=== PATIENT | male | born 1990 | race Caucasian/White ===

== ENCOUNTER 2020-06-25 20:02 | Inpatient (IN) | payer MEDICAID ==
[~2020-06-25] VITALS: Ht 180.3 cm; Wt 147.7 kg
[~2020-06-25 20:02] MED LIST: CYCL-1 PO; IBUP-1986 PO
[2020-06-25 20:49] LABS: BASOPHILS % (AUTO) 0.4 % (0-1); EOSINOPHILS % (AUTO) 0.2 % (0-6); HEMOGLOBIN 12.7 g/dl (14.0-17.9); LYMPHOCYTES % (AUTO) 13.5 % (21-51); MEAN CORPUSCULAR HEMOGLOBIN 28.8 PG (27.0-31.0); MEAN CORPUSCULAR HGB CONC 32.4 g/dL (33.0-36.5); MEAN CORPUSCULAR VOLUME 88.6 FL (78-98); MEAN PLATELET VOLUME 6.4 FL (7.4-10.4); MONOCYTES # (AUTO) 0.9 X10'3 (0-0.9); MONOCYTES % (AUTO) 11.9 % (2-12); NEUTROPHILS # (AUTO) 5.6 X10'3 (1.8-7.7); PLATELET COUNT 421 X10'3 (140-440); RED CELL DISTRIBUTION WIDTH 15.3 % (11.5-14.5); WHITE BLOOD COUNT 7.6 X10'3 (4.5-11.0)
[2020-06-25 20:50] LABS: CLARITY,URINE CLEAR (Clear); COLOR,URINE YELLOW (Yellow); GLUCOSE, URINE NEGATIVE (Neg); KETONES,URINE NEGATIVE (Neg); LEUKOCYTE ESTERASE ,URINE NEGATIVE (Neg); NITRITES, URINE NEGATIVE (Neg); OCCULT BLOOD,URINE NEGATIVE (Neg); PH,URINE 5.5 (4.8-8.0); PROTEIN,URINE 30 mg/dl (Neg)
[2020-06-25 20:53] LABS: UA COLLECTION TYPE NON-SPECIFIED
[2020-06-25 21:05] LABS: ALANINE AMINOTRANSFERASE 176 U/L (12-78); ALBUMIN 1.5 G/DL (3.4-5.0); ALBUMIN/GLOBULIN RATIO 0.3 (1.1-1.5); ALKALINE PHOSPHATASE 79 IU/L (46-116); ANION GAP 4 (8-16); ASPARTATE AMINO TRANSFERASE 422 U/L (10-37); BILIRUBIN,TOTAL 0.2 MG/DL (0.1-1.0); BLOOD UREA NITROGEN 10 MG/DL (7-18); BUN/CREATININE RATIO 13.9 (5.4-32.0); CALCIUM 7.2 MG/DL (8.5-10.1); CHLORIDE 102 MMOL/L (99-107); CREATININE 0.72 MG/DL (0.60-1.10); GLUCOSE 83 MG/DL (70-104); POTASSIUM 3.8 MMOL/L (3.5-5.1); SODIUM 133 MMOL/L (135-145); TOTAL CARBON DIOXIDE 26.7 MMOL/L (24-32); TOTAL PROTEIN 7.1 G/DL (6.4-8.2); eGFR > 90 ML/MIN
[2020-06-25 21:23] LABS: RBC,URINE NONE SEEN /HPF (0-2); SQUAMOUS EPITHELIAL CELL,UR FEW /LPF (FEW)
[2020-06-25 21:24] LABS: BACTERIA,URINE 2+ /HPF (Neg); MUCUS STRANDS MODERATE /LPF (Neg)
[2020-06-25] MEDS ORDERED: normal saline 1000ml 1,000 ML IV ONE ×2 (22:40)
[2020-06-25] MEDS ORDERED: folic acid 1mg/0.2ml inj IV ONE (22:50)
[2020-06-25] MEDS ORDERED: thiamine 100mg/ml 2ml inj. IV ONE (22:50)
[2020-06-25] MEDS ORDERED: LORazepam 2 mg/ml vial IV ONE ×2 (22:50→23:25)
[2020-06-26] MEDS ORDERED: normal saline 1000ml 1,000 ML IV ONE (00:25)
[2020-06-26 01:24] LABS: URINE AMPHETAMINE SCREEN NEGATIVE (Neg); URINE BARBITUATE SCREEN NEGATIVE (Neg); URINE BENZODIAZEPINES SCREEN NEGATIVE (Neg); URINE CANNABINOID SCREEN POSITIVE (Neg); URINE COCAINE SCREEN NEGATIVE (Neg); URINE METHADONE SCREEN NEGATIVE (Neg); URINE OPIATE SCREEN NEGATIVE (Neg); URINE PHENCYCLIDINE SCREEN NEGATIVE (Neg)
--- NOTE | 2020-06-26 02:50 | NUR ---
discussed pt's condition with provider. pt's bp taken manually to compare with monitor readings. patient sat up on side of bed for reading. pt has not urinated since rehyrdation with three liters of ns. aware and states she would like to keep patient.
[2020-06-26 03:08] LABS: LARGE PLATELETS FEW; PLATELET ESTIMATE NORMAL; TOTAL CELLS COUNTED 100; TOXIC GRANULATION 1+; TOXIC VACUOLATION FEW
[2020-06-26 03:10] LABS: POLYCHROMASIA FEW
--- NOTE | 2020-06-26 03:28 | NUR ---
PT URINATED. URINE IS TEA COLORED. OUTPUT ABOUT 300 MLS. AWARE. MD VERBALLY ORDERED 1 LITER NS. PT REFUSED ADDITIONAL LITER DUE TO THE FACT THAT HIS PHONE IS DYING AND HIS RIDE IS LEAVING. PT EDUCATED THAT WE COULD GET HIM A CAB HOME. MD AWARE OF PT'S REFUSAL OF TREATMENT.
[2020-06-26 03:48] LABS: CREATINE KINASE 3678 U/L (39-308)
[2020-06-26] MEDS ORDERED: CefTRIAXone/D5W-Rocephin 1gm 50 ML IV ONE (03:50)
[2020-06-26] MEDS ORDERED: CIPR250S2 PO (05:03)
--- NOTE | 2020-06-26 05:44 | NUR ---
WENT TO PREPARE PATIENT FOR DISCHARGE, AND PATIENT STATED THAT HE WAS WILLING TO STAY AND BE ADMITTED FOR TREATMENT.
[2020-06-26] MEDS ORDERED: azithromycin 250mg tablet PO ONE (08:05)
[2020-06-26] MEDS ORDERED: magnesium hydroxide 30ml (MOM) UD suspension PO PRN (10:25)
[2020-06-26] MEDS ORDERED: magnesium 4gm in 100ml NS 100 ML IV PRN (10:25)
[2020-06-26] MEDS ORDERED: magnesium 2GM in 50ml NS 50 ML IV PRN (10:25)
[2020-06-26] MEDS ORDERED: haloperidol lactate 5mg/ml inj IM PRN (10:25)
[2020-06-26] MEDS ORDERED: mag hydrox/Alum hydrox/simeth 30ml oral suspension PO PRN (10:25)
[2020-06-26] MEDS ORDERED: ondansetron/PF 4mg/2ml inj IV PRN (10:25)
[2020-06-26] MEDS ORDERED: bisacodyl 10mg suppository rectal RC PRN (10:25)
[2020-06-26] MEDS ORDERED: HYDROcodone/acetaminophen 5mg/325mg tablet PO PRN (10:25)
[2020-06-26] MEDS ORDERED: metoclopramide 5 mg/ml inj IV PRN (10:25)
[2020-06-26] MEDS ORDERED: diphenhydrAMINE 25mg capsule PO PRN (10:25)
[2020-06-26] MEDS ORDERED: diphenhydrAMINE 50 mg/ml inj IV PRN (10:25)
[2020-06-26] MEDS ORDERED: dextrose 50%-water 50ml dispensing syringe IV PRN (10:25)
[2020-06-26] MEDS ORDERED: acetaminophen 325mg tablet PO PRN ×2 (10:25)
[2020-06-26] MEDS ORDERED: thiamine 100mg/ml 2ml inj. IV ONE (10:25)
[2020-06-26] MEDS ORDERED: HYDROcodone/acetaminophen 10/325mg tab PO PRN (10:25)
[2020-06-26] MEDS ORDERED: potassium CL 10mEq/100ml bag 100 ML IV PRN ×2 (10:25)
[2020-06-26] MEDS ORDERED: potassium Cl 20 mEq SR tablet PO PRN ×2 (10:25)
[2020-06-26] MEDS ORDERED: LORazepam 2 mg/ml vial IV PRN (10:25)
[2020-06-26] MEDS ORDERED: magnesium Cl slow-release 64mg tablet PO PRN (10:25)
[2020-06-26] MEDS ORDERED: haloperidol 5mg tablet PO PRN (10:25)
[2020-06-26] MEDS ORDERED: morphine 2 MG/ML inj. syringe IV PRN ×2 (10:25)
--- NOTE | 2020-06-26 11:02 | NUR ---
Patient in room ED 13. I have received report from ED nurse and had the opportunity to ask questions and assume patient care.
[2020-06-26 11:30] VITALS: BP 124/60
[2020-06-26] MEDS: dextrose 5%-normal saline 1,000 ML IV SCH ×2 (11:48→17:05)
[2020-06-26 12:01] LABS: HEMOGLOBIN A1C 4.9 % (4.5-6.2)
[2020-06-26] MEDS: levoTHYROXINE 25mcg tablet PO SCH (12:22)
[2020-06-26] MEDS ORDERED: NO HOME MEDS (13:59)
[2020-06-26 15:00] VITALS: BP 117/63
--- NOTE | 2020-06-26 15:17 | NUR ---
pt states he smokes 1 pack of cigarette/day. needs nicotine patch. m informed. PAGER ID: [phone] MESSAGE: Claudia VERONICACecy [id number]. Pt: Ayleen. RM: [id number]. Pt smokes 1 pack of cigarette/day. requesting Nicotine patch. thank you.
[2020-06-26] MEDS ORDERED: nicotine 21mg patch - 24 hr TD ONE (17:30)
[2020-06-26 18:00] VITALS: BP 109/49
--- NOTE | 2020-06-26 18:00 | NUR ---
Patient in room PCU 3018. I have received report from Claudia LORA and had the opportunity to ask questions and assume patient care. Patient is resting in bed, no signs of distress.
--- NOTE | 2020-06-26 18:47 | NUR ---
Problems reprioritized. Patient report given, questions answered & plan of care reviewed with GENO Romero.
[2020-06-26] MEDS: K and/or MAG REPLACEMENT MC SCH (19:17)
[2020-06-26] MEDS: heparin, porcine 5000 units/ml vial SQ SCH (19:42)
[2020-06-26 22:00] VITALS: BP 115/62
[2020-06-27] MEDS: dextrose 5%-normal saline 1,000 ML IV SCH ×4 (00:48→14:42)
[2020-06-27 02:00] VITALS: BP 111/52
[2020-06-27 06:12] LABS: BASOPHILS % (AUTO) 0.5 % (0-1); EOSINOPHILS # (AUTO) 0.1 X10'3 (0-0.9); EOSINOPHILS % (AUTO) 1.1 % (0-6); HEMOGLOBIN 10.7 g/dl (14.0-17.9); LYMPHOCYTES # (AUTO) 1.1 X10'3 (1.1-4.8); MEAN CORPUSCULAR HEMOGLOBIN 28.6 PG (27.0-31.0); MEAN CORPUSCULAR HGB CONC 32.5 g/dL (33.0-36.5); MEAN CORPUSCULAR VOLUME 88.3 FL (78-98); MEAN PLATELET VOLUME 6.9 FL (7.4-10.4); MONOCYTES # (AUTO) 0.7 X10'3 (0-0.9); MONOCYTES % (AUTO) 11.8 % (2-12); NEUTROPHILS # (AUTO) 3.9 X10'3 (1.8-7.7); NEUTROPHILS % (AUTO) 67.6 % (42-75); PLATELET COUNT 350 X10'3 (140-440); RED BLOOD COUNT 3.73 X10'6 (4.70-6.10); RED CELL DISTRIBUTION WIDTH 15.1 % (11.5-14.5); WHITE BLOOD COUNT 5.7 X10'3 (4.5-11.0)
--- NOTE | 2020-06-27 06:20 | NUR ---
Patient in room PCU 3018. I have received report from Maria Del Rosario LORA and had the opportunity to ask questions and assume patient care.
[2020-06-27 06:27] LABS: ALANINE AMINOTRANSFERASE 127 U/L (12-78); ALBUMIN 1.1 G/DL (3.4-5.0); ALBUMIN/GLOBULIN RATIO 0.3 (1.1-1.5); ALKALINE PHOSPHATASE 62 IU/L (46-116); AMYLASE 43 U/L (25-115); ANION GAP 4 (8-16); ASPARTATE AMINO TRANSFERASE 304 U/L (10-37); BILIRUBIN,TOTAL 0.4 MG/DL (0.1-1.0); BLOOD UREA NITROGEN 9 MG/DL (7-18); CALCIUM 6.6 MG/DL (8.5-10.1); CHLORIDE 104 MMOL/L (99-107); CHOL/HDL RATIO 4.2 (0.00-4.99); CHOLESTEROL 75 MG/DL (0-200); GLUCOSE 95 MG/DL (70-104); HDL CHOLESTEROL 18 MG/DL (35-60); LDL CHOLESTEROL 48 MG/DL (50-100); MAGNESIUM 1.6 MG/DL (1.5-2.4); PHOSPHORUS 2.8 MG/DL (2.3-4.5); POTASSIUM 3.5 MMOL/L (3.5-5.1); SODIUM 134 MMOL/L (135-145); TOTAL CARBON DIOXIDE 26.2 MMOL/L (24-32); TOTAL PROTEIN 5.5 G/DL (6.4-8.2); TRIGLYCERIDES 71 MG/DL (20-135); eGFR > 90 ML/MIN
[2020-06-27 06:29] LABS: CREATINE KINASE 2440 U/L (39-308)
--- NOTE | 2020-06-27 06:47 | NUR ---
Problems reprioritized. Patient report given, questions answered & plan of care reviewed with Cheryle LORA.
[2020-06-27 07:06] VITALS: BP 129/62
[2020-06-27] MEDS: multivitamins, therapeutics tablet PO SCH (07:54)
[2020-06-27] MEDS: thiamine 100mg tablet PO SCH (07:55)
[2020-06-27] MEDS: levoTHYROXINE 25mcg tablet PO SCH (07:55)
[2020-06-27] MEDS: nicotine 21mg patch - 24 hr TD SCH (07:55)
[2020-06-27] MEDS: heparin, porcine 5000 units/ml vial SQ SCH (07:55)
[2020-06-27] MEDS: folic acid 1mg tablet PO SCH (07:55)
[2020-06-27] MEDS: K and/or MAG REPLACEMENT MC SCH ×2 (07:59→20:00)
[2020-06-27] MEDS ORDERED: heparin 10,000 units/1 ML INJ IV ONE ×2 (10:50→11:15)
[2020-06-27] MEDS ORDERED: heparin 10,000 units/1 ML INJ IV PRN (10:50)
--- NOTE | 2020-06-27 11:00 | NUR ---
Dr. Alex informed of results of venous ultrasound. Dr. Alex ordered a heparin drip for pt.
[2020-06-27] MEDS: CefTRIAXone/D5W-Rocephin 1gm 50 ML IV SCH (11:23)
[2020-06-27] MEDS: pantoprazole 40mg Tablet.DR PO SCH (11:23)
[2020-06-27 11:45] VITALS: BP 109/44
[2020-06-27] MEDS: heparin 25,000 UNIT/250ml bag 250 ML IV SCH ×2 (12:33→21:05)
[2020-06-27 13:26] LABS: HIV ANTIBODY 1&2 RAPID NON-REACTIVE (Neg)
[2020-06-27 15:30] VITALS: BP 109/44
--- NOTE | 2020-06-27 18:39 | NUR ---
Problems reprioritized. Patient report given, questions answered & plan of care reviewed with Bruce LORA.
--- NOTE | 2020-06-27 18:40 | NUR ---
Patient in room PCU 3015. I have received report from MARY LORA and had the opportunity to ask questions and assume patient care.
[2020-06-27 19:00] VITALS: BP 111/62
--- NOTE | 2020-06-27 19:50 | NUR ---
DVT PTT 103 HEPARIN WILL STOPPED FOR 60 MINUTES.
--- NOTE | 2020-06-27 20:50 | NUR ---
HEPARIN DRIP BACK INFUSION AT 1700 UNITS/HOUR.
[2020-06-27 23:00] VITALS: BP 122/86
[2020-06-28] MEDS: dextrose 5%-normal saline 1,000 ML IV SCH ×2 (00:46→07:47)
[2020-06-28] MEDS: heparin 25,000 UNIT/250ml bag 250 ML IV SCH (00:52)
[2020-06-28 03:00] VITALS: BP 118/76
[2020-06-28 06:16] LABS: ALANINE AMINOTRANSFERASE 123 U/L (12-78); ALBUMIN 1.1 G/DL (3.4-5.0); ALBUMIN/GLOBULIN RATIO 0.2 (1.1-1.5); ALKALINE PHOSPHATASE 59 IU/L (46-116); AMYLASE 40 U/L (25-115); ANION GAP 4 (8-16); ASPARTATE AMINO TRANSFERASE 288 U/L (10-37); BILIRUBIN,TOTAL 0.2 MG/DL (0.1-1.0); BLOOD UREA NITROGEN 6 MG/DL (7-18); CHLORIDE 106 MMOL/L (99-107); GLUCOSE 84 MG/DL (70-104); MAGNESIUM 1.7 MG/DL (1.5-2.4); PHOSPHORUS 3.3 MG/DL (2.3-4.5); POTASSIUM 3.8 MMOL/L (3.5-5.1); SODIUM 137 MMOL/L (135-145); TOTAL CARBON DIOXIDE 26.6 MMOL/L (24-32); TOTAL PROTEIN 5.7 G/DL (6.4-8.2); eGFR > 90 ML/MIN
[2020-06-28 06:22] LABS: CREATINE KINASE 2191 U/L (39-308)
--- NOTE | 2020-06-28 06:30 | NUR ---
Problems reprioritized. Patient report given, questions answered & plan of care reviewed with ELLIOTT LORA.
[2020-06-28 06:32] LABS: BASOPHILS % (AUTO) 0.4 % (0-1); EOSINOPHILS % (AUTO) 0.8 % (0-6); HEMATOCRIT 34.8 % (42.0-52.0); HEMOGLOBIN 11.2 g/dl (14.0-17.9); LYMPHOCYTES # (AUTO) 1.3 X10'3 (1.1-4.8); LYMPHOCYTES % (AUTO) 25.3 % (21-51); MEAN CORPUSCULAR HEMOGLOBIN 28.7 PG (27.0-31.0); MEAN CORPUSCULAR HGB CONC 32.2 g/dL (33.0-36.5); MEAN CORPUSCULAR VOLUME 89.1 FL (78-98); MEAN PLATELET VOLUME 7.2 FL (7.4-10.4); MONOCYTES # (AUTO) 0.6 X10'3 (0-0.9); MONOCYTES % (AUTO) 12.3 % (2-12); NEUTROPHILS # (AUTO) 3.2 X10'3 (1.8-7.7); NEUTROPHILS % (AUTO) 61.2 % (42-75); PLATELET COUNT 362 X10'3 (140-440); RED CELL DISTRIBUTION WIDTH 15.3 % (11.5-14.5); WHITE BLOOD COUNT 5.2 X10'3 (4.5-11.0)
--- NOTE | 2020-06-28 06:42 | NUR ---
Patient in room U 3016J. I have received report from KATHY CHAVEZ RN and had the opportunity to ask questions and assume patient care.
[2020-06-28] MEDS: folic acid 1mg tablet PO SCH (07:34)
[2020-06-28] MEDS: multivitamins, therapeutics tablet PO SCH (07:34)
[2020-06-28] MEDS: CefTRIAXone/D5W-Rocephin 1gm 50 ML IV SCH (07:34)
[2020-06-28] MEDS: pantoprazole 40mg Tablet.DR PO SCH (07:34)
[2020-06-28] MEDS: thiamine 100mg tablet PO SCH (07:34)
[2020-06-28] MEDS: levoTHYROXINE 25mcg tablet PO SCH (07:34)
[2020-06-28] MEDS: K and/or MAG REPLACEMENT MC SCH (07:38)
[2020-06-28] MEDS: nicotine 21mg patch - 24 hr TD SCH (07:38)
[2020-06-28 07:46] VITALS: BP 132/72
[2020-06-28] MEDS ORDERED: LORazepam 2 mg/ml vial IV PRN (10:25)
[2020-06-28] MEDS ORDERED: LORazepam 1 MG tablet PO PRN (10:25)
[2020-06-28 11:00] VITALS: BP 134/64
[2020-06-28] MEDS ORDERED: CEFD300C3 PO (14:09)
[2020-06-28] MEDS ORDERED: LEVO25TA7 PO (14:09)
[2020-06-28] MEDS ORDERED: APIX5TAB3 PO (14:09)
[2020-06-28] MEDS ORDERED: FOLI0.4T2 PO (14:09)
[2020-06-28] MEDS ORDERED: MULT-25 PO (14:09)
[2020-06-28] MEDS ORDERED: PANT40TA54 PO (14:09)
[2020-06-28] MEDS ORDERED: THIA50TA10 PO (14:09)
[2020-06-28] MEDS ORDERED: PROP10TA10 PO (14:11)
[2020-06-28] MEDS ORDERED: propranolol 10mg tablet PO ONE (14:15)
[2020-06-28 14:37] LABS: HBSAG SCREEN Negative (Negative); HEP A AB, IGM Negative (Negative); HEPATITIS C ANTIBODY <0.1 s/co ratio (0.0-0.9)
[2020-06-28 15:00] VITALS: BP 113/45
--- NOTE | 2020-06-28 17:00 | NUR ---
PATIENT STABLE AND APPROPRIATE FOR DISCHARGE, TELE TAKEN OFF, IVS TAKEN OUT, MEDS SENT TO PREFERRED PHARMACY, EDUCATION GIVEN, ALL BELONGINGS SENT WITH PATIENT, PATIENT TAKEN TO LOBBY BY WHEELCHAIR TO LOBBY TO AWAITING CAR WHERE FRIEND WILL TAKE PATIENT HOME.
[2020-06-30] MEDS ORDERED: LORazepam 2 mg/ml vial IV PRN (10:25)
[2020-06-30] MEDS ORDERED: LORazepam 1 MG tablet PO PRN (10:25)
== END 2020-06-28 17:02 | disposition home or self-care (01) | DRG 197 ==
LOC: ER 20:02 → ED HOLD 06-26 10:21 → PCU 3S 06-26 11:30
PROVIDERS: ADMIT Family Medicine; ATTEND Family Medicine
DX: I82.402 Acute embolism and thrombosis of unspecified deep veins of left lower extremity (principal); B19.10 Unspecified viral hepatitis B without hepatic coma; D63.8 Anemia in other chronic diseases classified elsewhere; E03.9 Hypothyroidism, unspecified; E66.01 Morbid (severe) obesity due to excess calories; E86.0 Dehydration; E86.1 Hypovolemia; E87.1 Hypo-osmolality and hyponatremia; F10.229 Alcohol dependence with intoxication, unspecified; F12.10 Cannabis abuse, uncomplicated; F17.200 Nicotine dependence, unspecified, uncomplicated; F41.9 Anxiety disorder, unspecified; I10 Essential (primary) hypertension; K76.0 Fatty (change of) liver, not elsewhere classified; M17.10 Unilateral primary osteoarthritis, unspecified knee; M62.82 Rhabdomyolysis; N39.0 Urinary tract infection, site not specified; Z79.01 Long term (current) use of anticoagulants; Z68.42 Body mass index [BMI] 45.0-49.9, adult
CPT/HCPCS: 36415; 71045; 76700; 80053; 80061; 80305; 80320; 81001; 82150; 82550; 82607; 82948; 83036; 83735; 84100; 84145; 84439; 84443; 84480; 85007; 85025; 85610; 85730; 86703; 86705; 86706; 86709; 86803; 87040; 87081; 87088; 87340; 87491; 92508; 92616; 93005; 93970; 96374; 96375; 97163; 97530; 99285; G0378; J0696; J1644; J2060; J3411; J3490; J7030; J7042